=== PATIENT | male | born 1935 | race Caucasian/White ===

== ENCOUNTER → 2017-01-09 | Outpatient (CLI) | payer MEDICARE, BC ==
[~2017-01-09] MED LIST: ASPIRIN EC81 MG PO; CORDARONE 200M200 MG PO; ELIQUIS2.5 MG PO; ISOSORBIDE MONO10 MG PO; PRAVACHOL40 MG PO; TOPROL XL 50 MG50 MG PO; VITAMIN D2000 UNIT PO; ZYLOPRIM 100 M100 MG PO
[2017-01-09 11:37] LABS: BUN/CREATININE RATIO 11 (0-10)
== END ==
LOC: LAB 10:35
PROVIDERS: Internal Medicine Cardiovascular Disease
DX: E78.2 Mixed hyperlipidemia (principal)
CPT/HCPCS: 36415; 80048; 80061; 80076

== ENCOUNTER → 2017-03-15 | Outpatient (CLI) | payer MEDICARE, OTHER ==
[2017-03-15 10:41] LABS: RED BLOOD COUNT 3.86 M/UL (4.20-5.50)
== END ==
LOC: LAB 09:35
PROVIDERS: Internal Medicine Nephrology
DX: N18.4 Chronic kidney disease, stage 4 (severe) (principal); N25.81 Secondary hyperparathyroidism of renal origin
CPT/HCPCS: 36415; 80053; 82728; 83540; 83550; 83970; 84100; 85027

== ENCOUNTER → 2017-07-08 | Outpatient (CLI) | payer MEDICARE, BC ==
[2017-07-08 10:27] LABS: RED BLOOD COUNT 3.95 M/UL (4.20-5.50); WHITE BLOOD COUNT 7.3 K/UL (4.5-11.0)
[2017-07-08 10:48] LABS: BUN/CREATININE RATIO 12 (0-10)
== END ==
LOC: LAB 09:12
PROVIDERS: Internal Medicine Cardiovascular Disease
DX: N18.4 Chronic kidney disease, stage 4 (severe) (principal); D63.1 Anemia in chronic kidney disease; I25.5 Ischemic cardiomyopathy; E78.2 Mixed hyperlipidemia
CPT/HCPCS: 36415; 80053; 80061; 82248; 82728; 83540; 83550; 83970; 84100; 85027

== ENCOUNTER 2021-01-31 15:11 | Inpatient (IN) | payer MEDICARE, BC ==
[~2021-01-31] VITALS: Ht 175.3 cm; Wt 69.1 kg
[~2021-01-31 15:11] MED LIST changes: +AMIODARONE HCL200 MG PO; +ASPIR-LOW81 MG PO; +BUMETANIDE2 MG PO; +FLONASE 0.05% N16 GM; +IMDUR ER TAB 3030 MG PO; +IRON18 MG PO; +ISOSORBIDE DINIT5 MG PO; +METOPROLOL SUCC25 MG PO; +PANTOPRAZOLE SO40 MG PO; +PRAVACHOL20 MG PO; -PRAVACHOL40 MG PO; +SODIUM BICARBO650 M1 PO
[2021-01-31 16:16] LABS: HEMOGLOBIN 11.9 gm/dl (14.0-17.5); RED BLOOD COUNT 3.66 M/UL (4.20-5.50); WHITE BLOOD COUNT 11.2 K/UL (4.5-11.0)
[2021-01-31] MEDS ORDERED: ISOSORBIDE MONO30 MG PO (20:46)
[2021-01-31] MEDS ORDERED: RENVELA800 MG PO (20:48)
[2021-01-31] MEDS ORDERED: METOPROLOL SUCC25 MG PO (22:09)
[2021-02-01 07:00] LABS: RED BLOOD COUNT 3.41 M/UL (4.20-5.50); WHITE BLOOD COUNT 10.3 K/UL (4.5-11.0)
[2021-02-02 07:23] LABS: HEMOGLOBIN 10.9 gm/dl (14.0-17.5); RED BLOOD COUNT 3.47 M/UL (4.20-5.50)
[2021-02-03 08:00] LABS: HEMOGLOBIN 11.4 gm/dl (14.0-17.5); RED BLOOD COUNT 3.57 M/UL (4.20-5.50); WHITE BLOOD COUNT 8.7 K/UL (4.5-11.0)
[2021-02-03 08:19] LABS: HBSAG SCREEN Negative (Negative); HEP A AB, IGM Negative (Negative); HEP B CORE AB, IGM Negative (Negative); HEP C VIRUS AB <0.1 (0.0-0.9)
[2021-02-03] MEDS ORDERED: CHRONULAC20 GM/30 M PO (11:22)
== END 2021-02-03 14:17 | disposition home or self-care (01) | DRG 432 ==
LOC: ER1 15:11 → CDU 17:25 → PROG CARE 17:25
PROVIDERS: Emergency Medicine; Internal Medicine Nephrology; ADMIT Internal Medicine Infectious Disease
DX: K74.60 Unspecified cirrhosis of liver (principal); G93.41 Metabolic encephalopathy; J18.9 Pneumonia, unspecified organism; N18.6 End stage renal disease; Z20.822 Contact with and (suspected) exposure to COVID-19; I47.2 Ventricular tachycardia; E87.2 Acidosis; I50.22 Chronic systolic (congestive) heart failure; I13.2 Hypertensive heart and chronic kidney disease with heart failure and with stage 5 chronic kidney disease, or end stage renal disease; K72.90 Hepatic failure, unspecified without coma; K80.80 Other cholelithiasis without obstruction; I08.1 Rheumatic disorders of both mitral and tricuspid valves; I27.20 Pulmonary hypertension, unspecified; E86.0 Dehydration; I25.5 Ischemic cardiomyopathy; I25.10 Atherosclerotic heart disease of native coronary artery without angina pectoris; E78.5 Hyperlipidemia, unspecified; Z87.11 Personal history of peptic ulcer disease; Z95.1 Presence of aortocoronary bypass graft; Z95.810 Presence of automatic (implantable) cardiac defibrillator; Z83.6 Family history of other diseases of the respiratory system; Z88.8 Allergy status to other drugs, medicaments and biological substances; Z99.2 Dependence on renal dialysis; Z79.82 Long term (current) use of aspirin
CPT/HCPCS: 36415; 36600; 70450; 71045; 76705; 80053; 80074; 80202; 80307; 82140; 82550; 82553; 82803; 82962; 82977; 83605; 83690; 83735; 83874; 83880; 84100; 84439; 84443; 84484; 85025; 85610; 85730; 86140; 87040; 90937; 96375; 96376; 97162; 99285; G0378; G0480; J1335; J2405; J3370; J7030; U0002

== ENCOUNTER → 2021-02-15 | Outpatient (CLI) | payer MEDICARE, BC ==
[~2021-02-15] MED LIST changes: +CHRONULAC20 GM/30 M PO; +ISOSORBIDE MONO30 MG PO; +LACTULOSE10 GM/151 PO; +RENVELA800 MG PO; +TOPROL XL25 MG PO; +XIFAXAN 550 MG550 MG PO
== END ==
LOC: LAB 13:57
DX: I12.0 Hypertensive chronic kidney disease with stage 5 chronic kidney disease or end stage renal disease (principal); N18.6 End stage renal disease; K72.90 Hepatic failure, unspecified without coma; K74.60 Unspecified cirrhosis of liver
CPT/HCPCS: 36415; 82140

== ENCOUNTER 2021-03-04 16:08 | Inpatient (IN) | payer MEDICARE, BC ==
[~2021-03-04] VITALS: Ht 175.3 cm; Wt 66.2 kg
[~2021-03-04 16:08] MED LIST changes: -LACTULOSE10 GM/151 PO; -TOPROL XL25 MG PO; -XIFAXAN 550 MG550 MG PO
[2021-03-04 17:52] LABS: HEMOGLOBIN 12.6 gm/dl (14.0-17.5); RED BLOOD COUNT 3.82 M/UL (4.20-5.50); WHITE BLOOD COUNT 9.3 K/UL (4.5-11.0)
[2021-03-04] MEDS ORDERED: LACTULOSE10 GM/151 PO (20:05)
[2021-03-04] MEDS ORDERED: AMIODARONE HCL200 MG PO (20:05)
[2021-03-04] MEDS ORDERED: TOPROL XL25 MG PO (20:09)
[2021-03-04] MEDS ORDERED: ISOSORBIDE MONO30 MG PO (20:10)
[2021-03-04 22:50] LABS: HEMOGLOBIN 12.7 gm/dl (14.0-17.5); RED BLOOD COUNT 3.86 M/UL (4.20-5.50); WHITE BLOOD COUNT 10.1 K/UL (4.5-11.0)
[2021-03-07 06:37] LABS: RED BLOOD COUNT 3.38 M/UL (4.20-5.50); WHITE BLOOD COUNT 8.6 K/UL (4.5-11.0)
[2021-03-08 03:38] LABS: HEMOGLOBIN 12.3 gm/dl (14.0-17.5); RED BLOOD COUNT 3.69 M/UL (4.20-5.50)
[2021-03-08 03:45] LABS: WHITE BLOOD COUNT 12.3 K/UL (4.5-11.0)
[2021-03-08] MEDS ORDERED: XIFAXAN 550 MG550 MG PO (08:42)
[2021-03-08] MEDS ORDERED: CHRONULAC20 GM/30 M PO (08:42)
[2021-03-08 12:15] LABS: HBSAG SCREEN Negative (Negative); HEP A AB, IGM Negative (Negative); HEP B CORE AB, IGM Negative (Negative); HEP C VIRUS AB <0.1 (0.0-0.9)
== END 2021-03-08 13:16 | disposition home or self-care (01) | DRG 441 ==
LOC: ER1 16:08 → MED SURG 4 18:45 → CDU 18:45 → MED SURG 4 18:45
PROVIDERS: Emergency Medicine; Internal Medicine; Internal Medicine Nephrology; ADMIT Internal Medicine
PROC: 5A1D70Z Performance of Urinary Filtration, Intermittent, Less than 6 Hours Per Day (ICD-10-PCS; principal; 2021-03-07)
DX: K72.00 Acute and subacute hepatic failure without coma (principal); N18.6 End stage renal disease; I12.0 Hypertensive chronic kidney disease with stage 5 chronic kidney disease or end stage renal disease; K76.6 Portal hypertension; I48.92 Unspecified atrial flutter; I48.91 Unspecified atrial fibrillation; I25.10 Atherosclerotic heart disease of native coronary artery without angina pectoris; I95.1 Orthostatic hypotension; I25.5 Ischemic cardiomyopathy; K75.81 Nonalcoholic steatohepatitis (NASH); K74.69 Other cirrhosis of liver; E78.5 Hyperlipidemia, unspecified; Z79.899 Other long term (current) drug therapy; Z99.2 Dependence on renal dialysis; Z79.82 Long term (current) use of aspirin; Z95.0 Presence of cardiac pacemaker; Z95.1 Presence of aortocoronary bypass graft; Z82.5 Family history of asthma and other chronic lower respiratory diseases; Z79.01 Long term (current) use of anticoagulants; Z84.1 Family history of disorders of kidney and ureter; Z88.8 Allergy status to other drugs, medicaments and biological substances
CPT/HCPCS: 36415; 70450; 71045; 80048; 80053; 80074; 82140; 82550; 82553; 83874; 84484; 85025; 85027; 85610; 85730; 87040; 90935; 93005; 97110-GP-CQ; 97162; 97165; 99285; J1644; J7050

== ENCOUNTER → 2022-04-17 | Outpatient (CLI) | payer MEDICARE, BC ==
[~2022-04-17] MED LIST changes: +LACTULOSE10 GM/151 PO; +TOPROL XL25 MG PO; +XIFAXAN 550 MG550 MG PO
== END ==
LOC: KOH-I 13:36
DX: R06.02 Shortness of breath (principal)
CPT/HCPCS: 71046